=== PATIENT | female | born 1970 | race Caucasian/White ===

== ENCOUNTER → 2019-11-26 11:15 | Outpatient (BNVA) | payer MEDICARE, MEDICAID, SELFPAY | PROVIDERS: Visit Provider Family Medicine | DX: E11.65 Type 2 diabetes mellitus with hyperglycemia (principal); Z79.4 Long term (current) use of insulin; I10 Essential (primary) hypertension; E11.319 Type 2 diabetes mellitus with unspecified diabetic retinopathy without macular edema; E83.42 Hypomagnesemia; F32.9 Major depressive disorder, single episode, unspecified; K21.9 Gastro-esophageal reflux disease without esophagitis; E78.5 Hyperlipidemia, unspecified; B37.9 Candidiasis, unspecified; L02.91 Cutaneous abscess, unspecified; L97.121 Non-pressure chronic ulcer of left thigh limited to breakdown of skin | CPT/HCPCS: 80053; 80061; 83036; 83735 ==

== ENCOUNTER → 2019-12-26 15:33 | Outpatient (BNVA) | payer MEDICARE, MEDICAID, SELFPAY | PROVIDERS: Visit Provider Nurse Practitioner Family | DX: R82.90 Unspecified abnormal findings in urine (principal); Z91.89 Other specified personal risk factors, not elsewhere classified; R30.0 Dysuria | CPT/HCPCS: 81000 ==

== ENCOUNTER → 2019-12-28 09:18 | Outpatient (BNVA) | payer MEDICARE, MEDICAID, SELFPAY | PROVIDERS: Referring Provider Family Medicine; Visit Provider Family Medicine | DX: Z91.89 Other specified personal risk factors, not elsewhere classified (principal) | CPT/HCPCS: 80074; 87491; 87591; 87661; 87806 ==

== ENCOUNTER → 2020-01-21 10:55 | Outpatient (BNVA) | payer MEDICARE, MEDICAID, SELFPAY | PROVIDERS: Visit Provider Emergency Medicine | DX: M25.531 Pain in right wrist (principal) | CPT/HCPCS: 73110 ==

== ENCOUNTER 2020-03-14 18:32 | Emergency (ER) | payer MEDICARE, MEDICAID, SELFPAY ==
[2020-03-14 18:37] VITALS: BP 169/79; PULSE 102; RESP 18; TEMP 36.9; O2SAT 94; BMI 33.0
--- NOTE | 2020-03-14 18:49 | CTR_ITS ---
PROCEDURE INFORMATION: Exam: CT Head Without Contrast Exam date and time: 03/14/2020 6:50 PM Age: 50 years old Clinical indication: Speech disturbance; Patient HX: Slurred speech, fatigue since 03/09; Additional info: CVA TECHNIQUE: Imaging protocol: Computed tomography of the head without contrast. Radiation optimization: All CT scans at this facility use at least one of these dose optimization techniques: automated exposure control; mA and/or kV adjustment per patient size (includes targeted exams where dose is matched to clinical indication); or iterative reconstruction. COMPARISON: No relevant prior studies available. FINDINGS: In lateral aspect right basal ganglia and extending into right external capsule there is hyperdense area compatible with acute hemorrhage measuring about 3.3 x 2.8 x 2.0 cm, with mild adjacent edema and local mass effect. There is moderate low density in the bilateral periventricular white matter which may represent chronic small vessel ischemic disease in the appropriate clinical setting. The possibility of superimposed acute infarctions cannot be excluded; consider MRI brain (including diffusion images) for further assessment if clinically warranted and if patient has no contraindication to MRI. There are prominent intracranial arterial calcifications. There is mild cerebral cortical volume loss. Ventricles do not appear significantly dilated. There is mildly prominent cisterna magna, a developmental variant. No depressed calvarial fracture is demonstrated. Visualized paranasal sinuses and mastoid air cells demonstrate no significant opacification. CT/CT head wo con* [id number] IMPRESSION: In lateral aspect right basal ganglia and extending into right external capsule there is hyperdense area compatible with acute hemorrhage measuring about 3.3 x 2.8 x 2.0 cm, with mild adjacent edema and local mass effect. Probable chronic ischemic changes as discussed above. THIS REPORT CONTAINS FINDINGS THAT MAY BE CRITICAL TO PATIENT CARE. The findings were verbally communicated via telephone conference with Tiara Mcknight at 7:41 PM CDT on 03/14/2020. The findings were acknowledged, understood and read back by Tiara Mcknight. Total DLP (mGy-cm): 737.97 Radiation Dose CTDIVOL = (mGy): DLP = 737.97 (mGy-cm)
--- NOTE | 2020-03-14 18:49 | XRR_ITS ---
PROCEDURE INFORMATION: Exam: XR Chest, 1 View Exam date and time: 03/14/2020 7:06 PM Age: 50 years old Clinical indication: Other: CVA TECHNIQUE: Imaging protocol: XR of the chest Views: 1 view. COMPARISON: No relevant prior studies available. FINDINGS: Lungs: Minimal interstitial scarring or atelectasis lower lungs. Pleural space: Unremarkable. No pleural effusion. No pneumothorax. Heart/Mediastinum: Unremarkable. No cardiomegaly. Bones/joints: Degenerative change of the spine. Calcific tendinosis right shoulder. XR/XR chest 1V portable [id number] IMPRESSION: Minor interstitial scarring or atelectasis lower lungs.
[2020-03-14 19:07] VITALS: RESP 18
[2020-03-14 19:12] LABS: Basophils % 0.4 %; Eosinophils # 0.1 10^3/uL (0.0-0.8); Eosinophils % 0.6 %; Hematocrit 43.3 % (37.0-47.0); Lymphocytes # 3.4 10^3/uL (0.8-4.8); Lymphocytes % 41.4 %; Mean Corpuscular HGB Conc 32.3 g/dL (30.0-36.0); Mean Corpuscular Hemoglobin 28.1 pg (28.0-34.0); Mean Corpuscular Volume 86.9 fL (81-99); Mean Platelet Volume 9.5 fL (7.4-10.4); Monocytes # 0.6 10^3/uL (0.2-0.9); Monocytes % 7.3 %; Neutrophils # 4.1 10^3/uL (1.8-7.7); Neutrophils % 49.8 %; Nucleated Red Blood Cells % 0 %; Platelet Count 383 10^3/cmm (130-400); Red Blood Count 4.98 10^6/uL (4.1-5.3); Red Cell Distribution Width 12.4 % (12.1-15.1); White Blood Count 8.3 10^3/uL (4.0-10.0)
[2020-03-14] MEDS: sodium chloride 0.9% 1,000 ML 999 ML IV (19:20)
--- NOTE | 2020-03-14 19:20 | ECG_ITS ---
[facility] Test Date: 2020-03-14 Pat Name: Ana Steward Department: Room: Gender: Female Head Baker: : 1970 Requested By: Tiara Hernandez Order Number: [id number] Sarah MD: Tali Lee M.D. Measurements Intervals [place] Rate: 106 P: 63 TN: 129 QRS: 38 QRSD: 97 T: 20 QT: 332 QTc: 441 Interpretive Statements SINUS TACHYCARDIA NONSPECIFIC T-WAVE ABNORMALITY ABNORMAL RHYTHM ECG No previous ECG available for comparison Electronically Signed On 03-14-2020 21:44:16 CDT by Tali Lee M.D. [id number]
--- NOTE | 2020-03-14 19:20 | ED_ITS ---
HPI - Weakness General: Chief complaint: Weakness Stated complaint: post stroke like symptoms Time Seen by Provider: 03/14/20 18:50 Source: patient Mode of arrival: ambulatory Limitations: no limitations History of Present Illness: HPI Narrative: 50-year-old female states she has been having some stuttering along with generalized weakness and confusion over the last 3 to 4 days. She states she had a mild headache as well. Patient is slightly hypertensive here. She denies any worsening improving factors. Patient is able answer all my questions appropriately here. She denies any chest pain. Associated symptoms: Denies chest pain, chills, dysuria, easy bruising, fever(s), nausea or vomiting Review of Systems Const: Denies: fever(s), chills, body aches or change in appetite Eyes: Denies: blurry vision or eye discomfort ENMT: Denies: throat pain or dental pain Card: Denies: chest pain Resp: Denies: dyspnea GI: Denies: abdominal pain, nausea, vomiting or diarrhea : Denies: dysuria Musc: Denies: neck pain or back pain Skin/Breast: Denies: rash Neuro: Reports: weakness in extremities Psych: Denies: depression Bin/Lymph: Denies: easy bruising All/Imm: Denies: urticaria PFSH ED PFSH: Medical History De Quervain's disease (radial styloid tenosynovitis) Depression Diabetes Diabetic retinopathy GERD (gastroesophageal reflux disease) Hx of hepatitis C Completed tx 2006 Hyperlipidemia Hypertension Right wrist pain Tendonitis Yeast dermatitis Surgical History H/O: Family History Sister Cancer Mother Chronic kidney disease (CKD) Diabetes Hypertension Father Hypertension Family/Other Stroke aunt Social History Smoking and tobacco status: current some day smoker cigarettes [ Other cigarette details: 1 pack a month ] Alcohol intake: current Alcohol intake frequency: few times a month Physical Exam Const: COMMON NORMALS: no acute distress, patient oriented x3 and healthy appearing HENMT: COMMON NORMALS: normocephalic and atraumatic HEAD & SCALP: normocephalic and atraumatic Eye: COMMON NORMALS: Equal, round and reactive pupils present and EOMs intact bilaterally PUPIL: Yes Equal, round and reactive pupils present Neck/C-Spine: COMMON NORMALS: full ROM and supple Chest: COMMONS NORMALS: normal inspection of the chest and normal palpation of entire chest wall Resp: COMMON NORMALS: normal respiratory effort, No retractions, No use of accessory muscles and clear to auscultation bilaterally AUSCULTATION: clear to auscultation bilaterally Cardio: COMMON NORMALS: regular rate, regular rhythm and No murmurs present (Cardio) RATE: regular rate RHYTHM: regular rhythm GI: COMMON NORMALS: Normal to inspection, nondistended, normoactive bowel sounds present, Soft to palpation, non-tender and no masses PALPATION: Yes Soft to palpation Extremity: COMMON NORMALS: normal to inspection and full ROM Neuro: COMMON NORMALS: patient oriented x3, moves all extremities and no focal motor deficits Psych: COMMON NORMALS: mental status grossly normal, Normal thought process present and cooperative THOUGHT PROCESS: Normal thought process present Skin: COMMON NORMALS: no rashes or lesions noted and no wounds GENERAL SKIN EXAM: no rashes or lesions noted Course Vital Signs: Vital signs: Vital Signs Temperature 98.5 F 03/14/20 18:37 Pulse Rate 102 H 03/14/20 18:37 Respiratory Rate 18 03/14/20 19:07 Blood Pressure 169/79 03/14/20 18:37 Pulse Oximetry 94 03/14/20 18:37 MDM - Weakness MDM Narrative: Medical decision making narrative: Patient presents here with intra-cranial hemorrhage likely hypertensive. Patient started on a Cardene drip here. Patient is awake and alert and has a GCS of 15 and does not need to be intubated. I spoke to ER physician at [facility] and will transfer there for higher level of care as we do not have neurosurgery. Lab Data: Labs: Lab Results 03/14/20 03/14/20 03/14/20 Range/Units 19:01 19:01 19:10 WBC 8.3 (4.0-10.0) 10^3/ uL RBC 4.98 (4.1-5.3) 10^6/u L Hgb 14.0 (11.5-15.3) g/dL Hct 43.3 (37.0-47.0) % MCV 86.9 (81-99) fL MCH 28.1 (28.0-34.0) pg MCHC 32.3 (30.0-36.0) g/dL RDW 12.4 (12.1-15.1) % Plt Count 383 (130-400) 10^3/c mm MPV 9.5 (7.4-10.4) fL Neut % (Auto) 49.8 % Lymph % (Auto) 41.4 % [place] % (Auto) 7.3 % Eos % (Auto) 0.6 % Baso % (Auto) 0.4 % Neut # (Auto) 4.1 (1.8-7.7) 10^3/u L Lymph # (Auto) 3.4 (0.8-4.8) 10^3/u L [place] # (Auto) 0.6 (0.2-0.9) 10^3/u L Eos # (Auto) 0.1 (0.0-0.8) 10^3/u L Baso # (Auto) 0.0 (0.0-0.1) 10^3/u L Nucleated RBC % (a uto) 0 % Nucleated RBCs # 0.0 /100WBC PT 11.00 (10.5-13.3) SECO NDS INR 0.78 L (0.8-1.2) Urine Color Straw (Yellow) Urine Appearance Hazy A (CLEAR) Urine pH 5 (5-7) Ur Specific Gravit y 1.015 (1.005-1.030) Urine Protein 3+ H (Negative) Urine Glucose (UA) 4+ H (Normal) Urine Ketones Negative (Negative) Urine Blood 2+ H (Negative) Urine Nitrate Negative (Negative) Urine Bilirubin Neg (NEGATIVE) Urine Urobilinogen Norm (Negative) mg/dL Ur Leukocyte Alexia ase Negative (Negative) Urine RBC 10-15 H (0-2) /hpf Urine WBC None (0-5) /hpf Ur Squamous Epith Cells 0-4 H (0-5) Amorphous Sediment Not Reportable Urine Bacteria Trace (NONE) Hyaline Casts 5-10 H Fine Granular Cast s 0-4 H /lpf Imaging Data^: CT Head: Radiologist's impression: [address] [place] [address] CT Scan Report Signed Patient: Ana Steward Unit #: [id number] : 1970 Age/Sex: 50 / F ADM Date: 03/14/20 Loc: ER Room/Bed: Attending Dr: Ordering Provider/Ordering MD: Tiara Hernandez MD Date of Service: 03/14/20 Procedure(s): CT head wo con* [id number] Accession Number(s): [id number] Report Number: [id number] PROCEDURE INFORMATION: Exam: CT Head Without Contrast Exam date and time: 03/14/2020 6:50 PM Age: 50 years old Clinical indication: Speech disturbance; Patient HX: Slurred speech, fatigue since 03/09; Additional info: CVA TECHNIQUE: Imaging protocol: Computed tomography of the head without contrast. Radiation optimization: All CT scans at this facility use at least one of these dose optimization techniques: automated exposure control; mA and/or kV adjustment per patient size (includes targeted exams where dose is matched to clinical indication); or iterative reconstruction. COMPARISON: No relevant prior studies available. FINDINGS: In lateral aspect right basal ganglia and extending into right external capsule there is hyperdense area compatible with acute hemorrhage measuring about 3.3 x 2.8 x 2.0 cm, with mild adjacent edema and local mass effect. There is moderate low density in the bilateral periventricular white matter which may represent chronic small vessel ischemic disease in the appropriate clinical setting. The possibility of superimposed acute infarctions cannot be excluded; consider MRI brain (including diffusion images) for further assessment if clinically warranted and if patient has no contraindication to MRI. There are prominent intracranial arterial calcifications. There is mild cerebral cortical volume loss. Ventricles do not appear significantly dilated. There is mildly prominent cisterna magna, a developmental variant. No depressed calvarial fracture is demonstrated. Visualized paranasal sinuses and mastoid air cells demonstrate no significant opacification. CT/CT head wo con* [id number] IMPRESSION: In lateral aspect right basal ganglia and extending into right external capsule there is hyperdense area compatible with acute hemorrhage measuring about 3.3 x 2.8 x 2.0 cm, with mild adjacent edema and local mass effect. Probable chronic ischemic changes as discussed above. THIS REPORT CONTAINS FINDINGS THAT MAY BE CRITICAL TO PATIENT CARE. The findings were verbally communicated via telephone conference with Tiara Mcknight at 7:41 PM CDT on 03/14/2020. The findings were acknowledged, understood and read back by Tiara Mcknight. EKG Data^: EKG 1: Attestation: I personally reviewed and interpreted this EKG as follows: EKG interpretation date: 03/14/20 EKG interpretation time: 19:37 Interpretation: sinus tach hr [address] or t wave abnormalities qrs 97 qtc 394 Critical Care Time Critical Care Time: Critical Care Time: Yes Total Critical Care Time: 35 Attestation: This case had a high probability of a clinically significant, sudden, or life threatening deterioration of this patient's condition which required my full and direct attention, intervention and personal management. Discharge Plan Discharge Patient Disposition: Xfer Other Clinical Impression: Intracranial hemorrhage Condition: Stable Referrals: Rosi Angel MD [Primary Care Provider] - Coding Level of Care Code ED Marketing Strategy Analyst for Chg Fwd Exam Comprehensive
[2020-03-14 19:43] LABS: INR 0.78 (0.8-1.2)
[2020-03-14 19:48] LABS: Add Urine Microscopic? YES; Bilirubin Urine Neg (NEGATIVE); Blood Urine 2+ (Negative); Glucose Urine UA 4+ (Normal); Ketones Urine Negative (Negative); Leukocyte Esterase Urine Negative (Negative); Nitrate Urine Negative (Negative); Protein Urine 3+ (Negative); Specific Gravity, Urine 1.015 (1.005-1.030); Urine Appearance Hazy (CLEAR); Urine Color Straw (Yellow); Urobilinogen Urine Norm (Negative); pH Urine 5 (5-7)
[2020-03-14 19:51] LABS: Bacteria Urine TRACE; Squamous Epithelial Cell Urine 0-4 (0-5)
[2020-03-14 19:52] LABS: Add Urine Culture? Yes; Fine Granular Casts Urine 0-4 /lpf
[2020-03-14 20:05] LABS: Alanine Aminotransferase 63 U/L (0-33); Albumin Level 2.7 g/dL (3.5-5.2); Alkaline Phosphatase 126 IU/L (35-105); Anion Gap 18.8 (5-19); Aspartate Amino Transferase 41 U/L (0-32); Blood Urea Nitrogen 31 mg/dL (6-20); Calcium 8.6 mg/dL (8.5-10.5); Carbon Dioxide 18 mmol/L (22-29); Chloride 98 mmol/L (98-107); Globulin 3.4 g/dL (1.3-4.6); Glomerular Filtration Rate 76.2 mL/min (90-130); Glucose 410 mg/dL (65-115); Osmolality Calculated 286 mOsm/kg (285-295); Potassium 3.8 mmol/L (3.5-5.1); Sodium 131 mmol/L (136-145); Thyroid Stimulating Hormone 2.77 uIU/mL (0.27-4.20); Total Bilirubin 0.2 mg/dL (0.15-1.2); Total Protein 6.1 g/dL (6.6-8.7)
[2020-03-14] MEDS: nicardipine 20 MG/200 ML PREMIX 50 MG IV (20:15)
[2020-03-14 20:44] VITALS: BP 144/79; PULSE 119; RESP 18; TEMP 36.9; O2SAT 100
--- NOTE | 2020-03-14 20:49 | PC.NURSE ---
Patient transferred to [facility] by [facility] with Cardene infusing at 15mg/hr.
== END 2020-03-14 20:45 | disposition other institution (70) ==
PROVIDERS: Emergency Provider Emergency Medicine; PCP Family Medicine
DX: I62.9 Nontraumatic intracranial hemorrhage, unspecified (principal); E11.9 Type 2 diabetes mellitus without complications; Z86.19 Personal history of other infectious and parasitic diseases; E78.5 Hyperlipidemia, unspecified; I10 Essential (primary) hypertension; F17.210 Nicotine dependence, cigarettes, uncomplicated
CPT/HCPCS: 12345; 36415; 70450; 71045; 80053; 81001; 81003; 84443; 85025; 85610; 87086; 93005; 96360; 96361; 96365; 99283; 99284; J7030

== ENCOUNTER → 2020-04-04 16:00 | Outpatient (BNVA) | payer MEDICARE, MEDICAID, SELFPAY | PROVIDERS: PCP Family Medicine; Visit Provider Family Medicine | DX: E11.65 Type 2 diabetes mellitus with hyperglycemia (principal); I10 Essential (primary) hypertension; E78.2 Mixed hyperlipidemia; I63.9 Cerebral infarction, unspecified; Z79.4 Long term (current) use of insulin | CPT/HCPCS: 80053; 80061; 83036 ==

== ENCOUNTER → 2020-04-29 10:51 | Outpatient (BNVA) | payer MEDICARE, MEDICAID, SELFPAY | PROVIDERS: PCP Family Medicine; Visit Provider Internal Medicine | DX: M65.4 Radial styloid tenosynovitis [de Quervain] (principal) | CPT/HCPCS: 87635 ==

== ENCOUNTER 2020-05-03 11:46 | Day surgery (SDC) | payer MEDICARE, MEDICAID, SELFPAY ==
[2020-05-02 13:47] VITALS: BMI 32.4
[2020-05-03 12:11] VITALS: BP 156/84; PULSE 95; RESP 18; TEMP 36.4; O2SAT 97
[2020-05-03] MEDS: sodium chloride 0.9% 1,000 ML 30 ML IV (12:40)
[2020-05-03 12:47] LABS: Glucose Point of Care 288 mg/dL (70-110)
--- NOTE | 2020-05-03 13:02 | P.ANESASSM_ITS ---
Pre-Anesthetic Assessment Pre-Anesthetic Assessment: Height/Weight: Height 1.69 m Weight 92.533 kg Temp Pulse Resp BP Pulse Ox 97.5 F L 95 18 156/84 97 05/03/20 12:11 05/03/20 12:11 05/03/20 12:11 05/03/20 12:11 05/03/20 12:11 Preop Diagnosis: Right de Quervain's tenosynovitis Proposed Procedure: Operation Date: 05/03/20 13:45 Proposed Procedures p Dequervain Release 10558 M65.4(Right) - Zohra Rodriguez MD Familial anesthetic complications: none Was Beta Jeanine taken within 24 eulalia rs: N/A Last intake: Intake Last Liquid Date 05/02/20 Last Liquid Time 23:55 Last Solid Date 05/02/20 Last Solid Time 23:55 Social: Social History: No alcohol and No tobacco Exam: Pre-Anes Outpt Exam: alert, oriented x 3, clear to auscultation bilaterally and regular rate & rhythm Airway: Cervical ROM: WNL MP: 3 Dentition: Full CV/HEM: CV/HEM: HTN GI: GI: GERD Metabolic: Metabolic: DM, Hyperlipidemia and Morbid obesity Neuropsych: Neuropsych: CVA (some slurring of words as residual symptom) Anesthetic Plan: ASA status: 2 Anesthesia: MAC and Regional (specify below) (cheyanne block) Risk of > 500 ml blood loss (7ml/kg in children): No Meds/Allergies Current Medications: Current Medications Generic Name Dose Route Start Last Admin Trade Name Freq PRN Reason Stop Dose Admin Sodium Chloride 1,000 mls @ 30 ml s/hr 05/03/20 12:15 05/03/20 12:40 Sodium Chloride 0.9% IV 05/04/20 12:14 30 mls/hr .Q24H GEETA Administration PFSH Anesthesia PFSH: Medical History CVA (cerebral vascular accident) De Quervain's disease (radial styloid tenosynovitis) Depression Diabetes Diabetic retinopathy GERD (gastroesophageal reflux disease) Hx of hepatitis C Completed tx 2006 Hyperlipidemia Hypertension Right wrist pain Tendonitis Yeast dermatitis Surgical History H/O: Family History Sister Cancer Mother Chronic kidney disease (CKD) Diabetes Hypertension Father Hypertension Family/Other Stroke aunt Social History Smoking and tobacco status: current some day smoker cigarettes [ Other cigarette details: 1 pack a month ] Alcohol intake: current Alcohol intake frequency: few times a month Female Reproductive History: Date of last menstrual period: 04/09/20 Data Anesthesia Other Labs: Laboratory Results - last 48 hr 05/03/20 12:24 POC Glucose 288 Cardiac Studies: No Data to Display
[2020-05-03] MEDS: insulin regular-human 100 units/1 mL 10 UNIT IVP (13:13)
--- NOTE | 2020-05-03 14:51 | P.HPUD_ITS ---
Surgery/Procedure H&P Update DATE OF PROCEDURE: May 03, 2020 DATE H&P PERFORMED: 05/02/20 H&P UPDATE INFORMATION: I have reviewed H&P completed within last 30 days, No changes to prior documentation and H&P is in [facility] on date indicated PREOP DIAGNOSIS: Right de Quervain's tenosynovitis PLANNED PROCEDURE: Operation Date: 05/03/20 13:45 Proposed Procedures p Dequervain Release [id number] M65.4(Right) - Zohra Rodriguez MD Related Problem List Diagnoses (1) De Quervain's disease (radial styloid tenosynovitis):
[2020-05-03 16:19] VITALS: BP 129/84; PULSE 96; RESP 18; TEMP 36.2; O2SAT 99
--- NOTE | 2020-05-03 16:20 | PM.OP ---
Operative Report Date of procedure: May 03, 2020 Pre-op Diagnosis: Right de Quervain's tenosynovitis Post-op diagnosis: same Post-op Findings: Significant compression throughout the de Quervain's canal Procedure Done: Right de Quervain's release Specimens removed/disposition: None Pathology: none sent Anesthesia: MAC (With Mitzy block) Estimated blood loss (mL): 5 Tourniquet time (min): 42 IV fluids (mL): 300 Urine output (mL): 0 Complications: None Findings: Significant compression across de Quervain's canal Condition: stable Disposition: same day Brief History: This 50-year-old woman presented with complaints of severe pain along de Quervain's canal. After discussion, she wished to proceed with operative intervention. Risks and complications were discussed with her, and the patient was consented for the above procedure. Procedure: The patient was brought to the operating theater. Anesthesia provided [place] block with MAC. The patient's right upper extremity was prepped and draped in usual fashion utilizing DuraPrep. It was draped free. The radial styloid was palpated and an incision was made horizontally approximately 1 cm proximal to the tip of the radial styloid. Dissection continued through the skin and dermis but following that soft tissue blunt dissection was accomplished to prevent injury to the superficial radial nerve branches in the area. We were able to retract these branches and the first dorsal compartment was visualized. The fibrous tissue over the first dorsal compartment was noted to be quite thickened and erythematous. This was released longitudinally using a combination of scalpel and scissors. We then confirmed that each of the tendons at been released. There was one abductor pollicis longus tendons and one extensor pollicis brevis tendon. All of these were released at least a centimeter distal to the radial styloid and proximally as well. There was no further compression across the tendons. The tendons were pulled up out of the tunnel for evaluation. Following this, the wound was irrigated. Attention was then directed to closure. Closure was accomplished with 4-0 Monocryl in a subcuticular running fashion. We did inject the wound with half percent Marcaine plain for local anesthetic. This was followed by Exofin and a Tegaderm. We then placed a compression dressing with fluffed fluffs followed by soft roll, and an Abdon wrap. Patient was returned to Recovery Room in a satisfactory condition and will be discharged home to follow-up with me in the office. There were no specimens and no complications. Associated Problem List Diagnoses (1) De Quervain's disease (radial styloid tenosynovitis):
[2020-05-03 16:32] VITALS: BP 141/99; PULSE 88; RESP 18; TEMP 36.2; O2SAT 98
--- NOTE | 2020-05-03 17:24 | ANE.PACU2 ---
Inpatient post-anesthesia follow up: Airway intact: Yes Vital signs: Temperature 97.2 F Pulse Rate 88 Respiratory Rate 18 Blood Pressure 141/99 Pulse Oximetry 98 Oxygen Delivery Me thod Room Air Oxygen Flow Rate Fraction of Inspir ed Oxygen Hydration adequate: Yes Nausea and vomiting: No Pain level: 1 Mental status: Baseline
== END 2020-05-03 17:01 | disposition home or self-care (01) ==
PROVIDERS: PCP Family Medicine; Visit Provider Specialist
PROC: (CPT 25000; principal; 2020-05-03 13:45)
DX: M65.4 Radial styloid tenosynovitis [de Quervain] (principal); I10 Essential (primary) hypertension; K21.9 Gastro-esophageal reflux disease without esophagitis; E78.5 Hyperlipidemia, unspecified; E66.01 Morbid (severe) obesity due to excess calories; I69.328 Other speech and language deficits following cerebral infarction; F32.9 Major depressive disorder, single episode, unspecified; E11.319 Type 2 diabetes mellitus with unspecified diabetic retinopathy without macular edema; F17.210 Nicotine dependence, cigarettes, uncomplicated
CPT/HCPCS: 25000; 12345; 36416; 81025; 82962; 96365; 96374; J0131; J0690; J1815; J2250; J2704; J3010; J3490; J7030

== ENCOUNTER → 2020-08-16 12:12 | Outpatient (BNVA) | payer MEDICARE, MEDICAID, SELFPAY | PROVIDERS: PCP Family Medicine; Visit Provider Family Medicine | DX: E11.65 Type 2 diabetes mellitus with hyperglycemia (principal); Z79.4 Long term (current) use of insulin; I10 Essential (primary) hypertension; E11.9 Type 2 diabetes mellitus without complications; E78.5 Hyperlipidemia, unspecified; K21.9 Gastro-esophageal reflux disease without esophagitis; E83.42 Hypomagnesemia; B37.2 Candidiasis of skin and nail; F33.0 Major depressive disorder, recurrent, mild; N76.4 Abscess of vulva; E78.2 Mixed hyperlipidemia; E87.1 Hypo-osmolality and hyponatremia; M65.4 Radial styloid tenosynovitis [de Quervain] | CPT/HCPCS: 80053; 80061; 83036; 83735 ==

== ENCOUNTER → 2021-02-02 10:57 | Outpatient (BNVA) | payer MEDICARE, MEDICAID, SELFPAY | PROVIDERS: PCP Family Medicine; Visit Provider Family Medicine | DX: I10 Essential (primary) hypertension (principal); Z68.37 Body mass index [BMI] 37.0-37.9, adult; F33.0 Major depressive disorder, recurrent, mild; E78.5 Hyperlipidemia, unspecified; K21.9 Gastro-esophageal reflux disease without esophagitis; B37.2 Candidiasis of skin and nail; E83.42 Hypomagnesemia; Z79.4 Long term (current) use of insulin; E11.9 Type 2 diabetes mellitus without complications; E11.65 Type 2 diabetes mellitus with hyperglycemia | CPT/HCPCS: 80053; 83036 ==

== ENCOUNTER → 2021-08-24 10:00 | Outpatient (BNVA) | payer MEDICARE, MEDICAID, SELFPAY | PROVIDERS: PCP Family Medicine; Visit Provider Family Medicine | DX: I10 Essential (primary) hypertension (principal); E83.42 Hypomagnesemia; E78.2 Mixed hyperlipidemia; E11.65 Type 2 diabetes mellitus with hyperglycemia; Z79.4 Long term (current) use of insulin; N92.1 Excessive and frequent menstruation with irregular cycle | CPT/HCPCS: 80053; 80061; 83036; 83735; 85025 ==

== ENCOUNTER 2022-03-15 17:00 | Emergency (ER) | payer MEDICARE, MEDICAID, SELFPAY ==
[2022-03-15 17:06] VITALS: BP 200/100; PULSE 114; RESP 14; TEMP 36.6; O2SAT 96; BMI 32.8
--- NOTE | 2022-03-15 17:26 | CTR_ITS ---
PROCEDURE INFORMATION: Exam: CTA Head With Contrast, Arteriography Exam date and time: 03/15/2022 7:32 PM Age: 52 years old Clinical indication: Stroke-like symptoms; Lt upper extremity and lt lower extremity weakness; Additional info: Patient had a fall today and hypertensive on monitor. States has lost sensation to left side of body. History of prior CVA. TECHNIQUE: Imaging protocol: Computed tomographic angiography of the head with contrast. Exam focused on the arteries. 3D rendering (Not supervised by radiologist): MIP and/or 3D reconstructed images were created by the technologist. Radiation optimization: All CT scans at this facility use at least one of these dose optimization techniques: automated exposure control; mA and/or kV adjustment per patient size (includes targeted exams where dose is matched to clinical indication); or iterative reconstruction. Contrast material: OMNI 350; Contrast volume: 90 ml; Contrast route: INTRAVENOUS (IV); COMPARISON: CT head wo con* [id number] 03/14/2020 7:14 PM RADIATION DOSE METRICS: Total DLP (mGy-cm): 535.17 FINDINGS: Limitations: Study is severely limited by patient motion. ANTERIOR CIRCULATION: Right internal carotid artery: Limited visualization. Intracranial segment is grossly patent with no significant stenosis. No aneurysm. Right middle cerebral artery: Limited visualization. Intracranial segment is grossly patent with no significant stenosis. No aneurysm. Right anterior cerebral artery: Limited visualization. Intracranial segment is grossly patent with no significant stenosis. No aneurysm. Left internal carotid artery: Limited visualization. Intracranial segment is grossly patent with no significant stenosis. No aneurysm. Left middle cerebral artery: Limited visualization. Intracranial segment is grossly patent with no significant stenosis. No aneurysm. Left anterior cerebral artery: Limited visualization. Intracranial segment is grossly patent with no significant stenosis. No aneurysm. POSTERIOR CIRCULATION: Right vertebral artery: Unremarkable. No occlusion or significant stenosis. No aneurysm. Left vertebral artery: Unremarkable. No occlusion or significant stenosis. No aneurysm. Basilar artery: Unremarkable. No occlusion or significant stenosis. No aneurysm. Right posterior cerebral artery: Limited visualization. Intracranial segment is grossly patent with no significant stenosis. No aneurysm. Left posterior cerebral artery: Limited visualization. Intracranial segment is grossly patent with no significant stenosis. No aneurysm. Brain: There is an acute parenchymal hemorrhage in the supraventricular portion of the right posterior parietal lobe and centrum semiovale measuring approximately 43 x 22 x 23 mm (approximate volume 10.8 cc). Cerebral ventricles: There is interventricular extension of the parenchymal hemorrhage with blood filling the trigone, occipital horn and temporal horn of the right lateral ventricle. Bones/joints: Unremarkable. No acute fracture. Soft tissues: Unremarkable. COMMENTS: THIS REPORT CONTAINS FINDINGS THAT MAY BE CRITICAL TO PATIENT CARE. The findings were verbally communicated via telephone conference with Darian Bernstein at 8:01 PM CDT on 03/15/2022. The findings were acknowledged and understood. PROCEDURE INFORMATION: Exam: CTA Neck With Contrast Exam date and time: 03/15/2022 7:32 PM Age: 52 years old Clinical indication: Stroke-like symptoms; Lt upper extremity and lt lower extremity weakness; Additional info: Patient had a fall today and hypertensive on monitor. States has lost sensation to left side of body. History of prior CVA. TECHNIQUE: Imaging protocol: Computed tomographic angiography of the neck with contrast. 3D rendering (Not supervised by radiologist): MIP and/or 3D reconstructed images were created by the technologist. Radiation optimization: All CT scans at this facility use at least one of these dose optimization techniques: automated exposure control; mA and/or kV adjustment per patient size (includes targeted exams where dose is matched to clinical indication); or iterative reconstruction. Contrast material: OMNI 350; Contrast volume: 90 ml; Contrast route: INTRAVENOUS (IV); COMPARISON: CT head wo con* [id number] 03/14/2020 7:14 PM RADIATION DOSE METRICS: Total DLP (mGy-cm): 535.17 FINDINGS: Limitations: Study is significantly limited by patient motion. Right common carotid artery: No stenosis. No dissection or occlusion. Right internal carotid artery: No stenosis of the extracranial segment. No dissection or occlusion. Right external carotid artery: No occlusion or stenosis of the origin. Left common carotid artery: There is some focal atherosclerotic calcified plaque in the left carotid bulb but no significant stenosis as measured according to the NASCET criteria. Left internal carotid artery: No stenosis of the extracranial segment. No dissection or occlusion. Left external carotid artery: No occlusion or stenosis of the origin. Right vertebral artery: No stenosis. No dissection or occlusion. Left vertebral artery: No stenosis. No dissection or occlusion. Soft tissues: Normal. No significant soft tissue swelling. Bones/joints: No acute fracture. CT/CT angio headne* [id number] IMPRESSION: 1. No large vessel occlusion is demonstrated on this study, however evaluation of the blood vessels is limited by patient motion. 2. Acute parenchymal and intraventricular hemorrhage. IMPRESSION: There is no evidence of significant stenosis or occlusion in the carotid or vertebral arteries in the neck. REFERENCES: NASCET CRITERIA. The degree of internal carotid artery stenosis is based on NASCET criteria. Normal is no stenosis. Mild is less than 50% stenosis. Moderate is 50-69% stenosis. Severe is 70% to 99% stenosis. Total occlusion is no detectable patent lumen.
--- NOTE | 2022-03-15 17:27 | ECG_ITS ---
[facility] Test Date: 2022-03-15 Pat Name: Ana Steward Department: Room: Gender: Female General Practitioner: : 1970 Requested By: Darian Bernstein Order Number: [id number] Sarah MD: Tali Lee M.D. Measurements Intervals [place] Rate: 118 P: 74 SC: 116 QRS: 90 QRSD: 95 T: 24 QT: 318 QTc: 447 Interpretive Statements SINUS TACHYCARDIA WITH SHORT SC INTERVAL LOW QRS VOLTAGE IN PRECORDIAL LEADS [QRS DEFLECTION < 1.0 mV IN CHEST LEADS] NONSPECIFIC T-WAVE ABNORMALITY ABNORMAL RHYTHM ECG Compared to ECG 03/14/2020 19:37:29 Short SC interval now present Low QRS voltage now present T-wave abnormality still present Electronically Signed On 03-15-2022 19:26:22 CDT by Tali Lee M.D. [id number]
--- NOTE | 2022-03-15 17:28 | W.ED.GENADLT ---
HPI - General Adult General: Chief complaint: General Medical Stated complaint: FALL/ HTN Time Seen by Provider: 03/15/22 17:19 History of Present Illness: 52-year-old presents due to concern for high blood pressure. Also states that her left-sided became paralyzed around noon today. She denies any headache. Denies any other focal weakness numbness or tingling. Denies any vision hearing change or vertigo. States she fell at home due to the paralysis. Initially denies pain to me however after several minutes in the room the reported headache. Review of Systems Narrative: - CONSTITUTIONAL: Denies weight loss, fever and chills. - HEENT: Denies changes in vision and hearing. - RESPIRATORY: Denies SOB and cough. - CV: Denies palpitations and CP. - GI: Denies abdominal pain, nausea, vomiting and diarrhea. - : Denies dysuria and urinary frequency. - MSK: Denies myalgia and joint pain. - SKIN: Denies rash and pruritus. - NEUROLOGICAL: As above - PSYCHIATRIC: Denies suicidal ideation PFSH ED PFSH: Medical History (Updated 08/24/21 @ 15:09 by Rosi Angel MD) CVA (cerebral vascular accident) De Quervain's disease (radial styloid tenosynovitis) Depression Diabetes Diabetic retinopathy GERD (gastroesophageal reflux disease) Hx of hepatitis C Completed tx 2006 Hyperlipidemia Hypertension Did not tolerate hydrochlorothiazide or KOKO inhibitor due to dizziness Right wrist pain Tendonitis Yeast dermatitis Surgical History H/O: Family History Sister Cancer Mother Chronic kidney disease (CKD) Diabetes Hypertension Father Hypertension Family/Other Stroke aunt Social History Smoking and tobacco status: former smoker Alcohol intake: current Alcohol intake frequency: few times a month Female Reproductive History: Date of last menstrual period: 04/09/20 Spontaneous abortions: No Physical Exam Narrative: EXAM NARRATIVE: - GENERAL: Alert and oriented x 3. No acute distress. Well-nourished. - EYES: EOMI. Anicteric. - HENT: Atraumatic, no C-spine tenderness. Moist mucous membranes. No scleral icterus. No cervical lymphadenopathy. - LUNGS: Clear to auscultation bilaterally. No accessory muscle use. Equal lung sounds bilaterally. No respiratory distress. - CARDIOVASCULAR: Regular rate and rhythm. No murmur. No JVD. - ABDOMEN: Soft, non-tender and non-distended. Negative CVA tenderness bilaterally, no rebound or guarding, negative Hobson sign. No palpable masses. - EXTREMITIES: No edema. Non-tender. - SKIN: No rashes or lesions. Warm. - NEUROLOGIC: No meningismus. Cranial nerves II through XII intact. Left upper and lower extremity weakness. Bilateral lower extremity weakness greater on the left side. There is also weakness of the left upper extremity but no weakness on the right. No facial droop - PSYCHIATRIC: Cooperative. Appropriate mood and affect. Course Vital Signs: Vital signs: Vital Signs Temperature 98 F 03/15/22 17:06 Pulse Rate 114 H 03/15/22 17:06 Respiratory Rate 20 H 03/15/22 18:49 Blood Pressure 200/100 03/15/22 17:06 Pulse Oximetry 96 03/15/22 17:06 MDM - General Adult Medical Decision Making 52-year-old presents due to left-sided upper and lower extremity weakness as well as some more minor right lower extremity weakness. She denies any blood thinner use. GCS is 15. CT scan concerning for intracranial hemorrhage. She is maintaining her airway and does not appear to be altered. Not believe intubation is required at this time. There is no sign of intracranial pressure. Prophylactic Keppra provided. Discussed with ER physician at [facility] where appropriate subspecialty neurosurgery backup is available and they will accept transfer. Lab Data : 03/15/22 18:50 03/15/22 18:50 Laboratory Results WBC 9.2 10^3/uL (4.0-10.0) 03/15/22 18:50 RBC 4.79 10^6/uL (4.1-5.3) 03/15/22 18:50 Hgb 13.7 g/dL (11.5-15.3) 03/15/22 18:50 Hct 41.0 % (37.0-47.0) 03/15/22 18:50 MCV 85.6 fl (81-99) 03/15/22 18:50 MCH 28.6 pg (28.0-34.0) 03/15/22 18:50 MCHC 33.4 g/dL (30.0-36.0) 03/15/22 18:50 RDW 13.4 % (12.1-15.1) 03/15/22 18:50 Plt Count 359 10^3/cmm (130-400) 03/15/22 18:50 MPV 9.9 fL (7.4-10.4) 03/15/22 18:50 Neut % (Auto) 72.3 % 03/15/22 18:50 Lymph % (Auto) 20.8 % 03/15/22 18:50 [place] % (Auto) 5.3 % 03/15/22 18:50 Eos % (Auto) 0.4 % 03/15/22 18:50 Baso % (Auto) 0.5 % 03/15/22 18:50 Neut # (Auto) 6.67 10^3/uL (1.8-7.7) 03/15/22 18:50 Lymph # (Auto) 1.9 10^3/uL (0.8-4.8) 03/15/22 18:50 [place] # (Auto) 0.5 10^3/uL (0.2-0.9) 03/15/22 18:50 Eos # (Auto) 0.0 10^3/uL (0.0-0.8) 03/15/22 18:50 Baso # (Auto) 0.1 10^3/uL (0.0-0.1) 03/15/22 18:50 Nucleated RBC % (auto) 0 % 03/15/22 18:50 Nucleated RBCs # 0.0 /100WBC 03/15/22 18:50 Sodium 136 mmol/L (136-145) 03/15/22 18:50 Potassium 3.9 mmol/L (3.5-5.1) 03/15/22 18:50 Chloride 101 mmol/L (98-107) 03/15/22 18:50 Carbon Dioxide 20 mmol/L (22-29) L 03/15/22 18:50 Anion Gap 18.9 (5-19) 03/15/22 18:50 BUN 27 mg/dL (6-20) H 03/15/22 18:50 Creatinine 1.1 mg/dL (0.5-0.9) H 03/15/22 18:50 GFR Calculation 52.4 mL/min (90-130) L 03/15/22 18:50 Glucose 435 mg/dL (65-115) H 03/15/22 18:50 Calculated Osmolality 306 mOsm/kg (285-295) H 03/15/22 18:50 Calcium 8.6 mg/dL (8.5-10.5) 03/15/22 18:50 Total Bilirubin 0.2 mg/dL (0.15-1.2) 03/15/22 18:50 AST 39 U/L (0-32) H 03/15/22 18:50 ALT 37 U/L (0-33) H 03/15/22 18:50 Alkaline Phosphatase 108 IU/L (35-105) H 03/15/22 18:50 Troponin T Baseline 11 ng/L (0-10) H 03/15/22 18:50 Total Protein 5.9 g/dL (6.6-8.7) L 03/15/22 18:50 Albumin 2.3 g/dL (3.5-5.2) L 03/15/22 18:50 Globulin 3.6 g/dL (1.3-4.6) 03/15/22 18:50 EKG Data EKG 1: Other EKG comments: Sinus tachycardia, rate of 118, there is a short HI interval but no delta wave. No sign of acute ischemia or other acute abnormality. Critical Care Time Critical Care Time: Critical Care Time: Yes Total Critical Care Time: 30 Attestation: This case had a high probability of a clinically significant, sudden, or life threatening deterioration of this patient's condition which required my full and direct attention, intervention and personal management. Discharge Plan Discharge Condition: Stable Prescriptions: No Action nystatin 100,000 unit/gram powder 1 applic topical DAILY Qty: 60 5RF metoprolol succinate 25 mg tablet extended release 24 hr 25 mg PO DAILY 30 Days Qty: 30 2RF Levemir FlexTouch U-100 Insuln 100 unit/mL (3 mL) insulin pen 25 unit SUBCUT DAILY 30 Days Qty: 15 2RF sertraline 100 mg tablet 100 mg PO DAILY 90 Days Qty: 90 0RF omeprazole 40 mg capsule,delayed release(DR/EC) 40 mg PO DAILY 90 Days Qty: 90 1RF diphenhydramine HCl [Benadryl] 25 mg capsule 25 mg PO TID PRN0RF Fiasp FlexTouch U-100 Insulin 100 unit/mL (3 mL) insulin pen See Rx Instructions .ROUTE .COMPLEX Qty: 15 3RF Dose Instruction: 20 UNIT (0.2ML) SUB-Q 3 TIMES A DAY 30 DAYS WITH MEALS QUANITY SUFFICIENT Rx Instructions: 20 UNIT (0.2ML) SUB-Q 3 TIMES A DAY 30 DAYS WITH MEALS QUANITY SUFFICIENT magnesium oxide [MagOx] 400 mg (241.3 mg magnesium) tablet 400 mg PO BID 90 Days Qty: 180 0RF (DME) Blood Glucose Test Strip See Rx Instructions .ROUTE .MEDSUPPLY Qty: 100 11RF Rx Instructions: strips for new machine, 3 strips daily (DME) lancets Misc See Rx Instructions .ROUTE .MEDSUPPLY Qty: 100 11RF Rx Instructions: For use with glucose meter, brand/type per insurance (DME) blood-glucose meter [Blood Glucose Monitoring] Kit See Rx Instructions .ROUTE .MEDSUPPLY Qty: 1 0RF Rx Instructions: Brand/type per insurance coverage alcohol swabs Pads, Medicated 1 pad topical TID PRN (Reason: as needed to check blood sugar) 30 Days Qty: 100 11RF Discharge Orders: Transfer Out of Facility (Order); Ordered 03/15/22 Ordered By: Darian Bernstein Referrals: Rosi Angel MD [Primary Care Provider] - Coding Level of Care Code ED Tax Assistant for Nakul Torres
[2022-03-15 18:49] VITALS: RESP 20
[2022-03-15] MEDS: labetalol 5 mg/mL SDV 20mL 10 MG IVP (18:49)
[2022-03-15] MEDS: morphine 4 mg/mL SDV 1 mL IVP (18:49)
[2022-03-15 19:05] LABS: Basophils # 0.1 10^3/uL (0.0-0.1); Basophils % 0.5 %; Eosinophils % 0.4 %; Hemoglobin 13.7 g/dL (11.5-15.3); Lymphocytes # 1.9 10^3/uL (0.8-4.8); Lymphocytes % 20.8 %; Mean Corpuscular HGB Conc 33.4 g/dL (30.0-36.0); Mean Corpuscular Hemoglobin 28.6 pg (28.0-34.0); Mean Corpuscular Volume 85.6 fl (81-99); Mean Platelet Volume 9.9 fL (7.4-10.4); Monocytes # 0.5 10^3/uL (0.2-0.9); Monocytes % 5.3 %; Neutrophils # 6.67 10^3/uL (1.8-7.7); Neutrophils % 72.3 %; Nucleated Red Blood Cells % 0 %; Platelet Count 359 10^3/cmm (130-400); Red Blood Count 4.79 10^6/uL (4.1-5.3); Red Cell Distribution Width 13.4 % (12.1-15.1); White Blood Count 9.2 10^3/uL (4.0-10.0)
[2022-03-15 19:22] LABS: Alanine Aminotransferase 37 U/L (0-33); Albumin Level 2.3 g/dL (3.5-5.2); Alkaline Phosphatase 108 IU/L (35-105); Anion Gap 18.9 (5-19); Aspartate Amino Transferase 39 U/L (0-32); Blood Urea Nitrogen 27 mg/dL (6-20); Calcium 8.6 mg/dL (8.5-10.5); Carbon Dioxide 20 mmol/L (22-29); Chloride 101 mmol/L (98-107); Globulin 3.6 g/dL (1.3-4.6); Glomerular Filtration Rate 52.4 mL/min (90-130); Glucose 435 mg/dL (65-115); Osmolality Calculated 306 mOsm/kg (285-295); Potassium 3.9 mmol/L (3.5-5.1); Sodium 136 mmol/L (136-145); Total Bilirubin 0.2 mg/dL (0.15-1.2); Total Protein 5.9 g/dL (6.6-8.7); Troponin(5th) Baseline 11 ng/L (0-10)
[2022-03-15] MEDS: iohexol 350 mg/mL 100 mL Btl IV (19:37)
[2022-03-15] MEDS: nicardipine 20 MG/200 ML PREMIX 50 MG IV (20:54)
[2022-03-15] MEDS: fentaNYL 50 mcg/mL INJ 2mL IVP (21:20)
[2022-03-15 21:23] LABS: Partial Thromboplastin Time 23.8 SECONDS (23.9-36.7)
== END 2022-03-15 21:34 ==
PROVIDERS: Emergency Provider Emergency Medicine; PCP Family Medicine
DX: I61.5 Nontraumatic intracerebral hemorrhage, intraventricular (principal); I10 Essential (primary) hypertension; E11.9 Type 2 diabetes mellitus without complications; K21.9 Gastro-esophageal reflux disease without esophagitis; E78.5 Hyperlipidemia, unspecified; Z86.73 Personal history of transient ischemic attack (TIA), and cerebral infarction without residual deficits
CPT/HCPCS: 70496; 70498; 80053; 84484; 85025; 85610; 85730; 93005; 96365; 96367; 96375; 99285; J1953; J2270; J3010; J3490; Q9967

== ENCOUNTER 2022-07-28 01:33 | Emergency (ER) | payer MEDICARE, MEDICAID, SELFPAY ==
[2022-07-28 01:36] VITALS: PULSE 97; RESP 20; O2SAT 99; BMI 34.4
--- NOTE | 2022-07-28 03:13 | XRR_ITS ---
PROCEDURE INFORMATION: Exam: XR Left Humerus Exam date and time: 07/28/2022 4:23 AM Age: 52 years old Clinical indication: Injury or trauma; Fall; Blunt trauma (contusions or hematomas); Arm, upper; Patient HX: Left side paralysis. PT fell out of wheelchair; Additional info: L arm pain p fall TECHNIQUE: Imaging protocol: Radiologic exam of the Left humerus. Views: 2 or more views. COMPARISON: CT cervical spin wo con* [id number] 07/28/2022 3:49 AM FINDINGS: Bones/joints: Normal. Soft tissues: Normal. XR/[place] [id number] IMPRESSION: No acute findings.
--- NOTE | 2022-07-28 03:13 | CTR_ITS ---
PROCEDURE INFORMATION: Exam: CT Head Without Contrast Exam date and time: 07/28/2022 3:40 AM Age: 52 years old Clinical indication: Injury or trauma; Fall; Blunt trauma (contusions or hematomas); Consciousness not specified; Patient HX: Left side paralysis. PT fell out of wheelchair; Additional info: Fall head inj TECHNIQUE: Imaging protocol: Computed tomography of the head without contrast. Radiation optimization: All CT scans at this facility use at least one of these dose optimization techniques: automated exposure control; mA and/or kV adjustment per patient size (includes targeted exams where dose is matched to clinical indication); or iterative reconstruction. COMPARISON: CT angio headneck* [id number] 03/15/2022 7:32 PM RADIATION DOSE METRICS: Total DLP (mGy-cm): 1029.14 FINDINGS: Brain: There is no evidence of acute intracranial hemorrhage. There are moderate confluent periventricular hypodensities consistent with chronic microischemic changes of white matter. No mass effect or midline shift. There are hypodensities in the right gangliocapsular region extending to the centrum semiovale that correspond to areas of prior hemorrhage. Cerebral ventricles: There is moderate volume loss and commensurate ventricular dilatation, consistent with the patient's age. Paranasal sinuses: There are no air-fluid levels. There is mild nodular mucosal thickening of the right maxillary sinus. Mastoid air cells: The visualized mastoid air cells are well aerated. Bones/joints: No acute fracture. Soft tissues: Unremarkable. Vasculature: There is atheromatous calcification of the intracranial internal carotid and vertebral arteries. CT/CT head wo con* [id number] IMPRESSION: 1. No acute intracranial findings. 2. Hypodensities in the right gangliocapsular region and centrum semiovale that correspond to chronic evolving intracranial hemorrhages. These are areas of encephalomalacia/gliosis. 3. Moderate volume loss out of proportion to the patient's age. 4. The ventricles are significantly more dilated than on prior examinations and out of the proportion to the degree of sulcal prominence. Consider evaluation for normal pressure hydrocephalus, if not already accomplished.
--- NOTE | 2022-07-28 03:13 | XRR_ITS ---
PROCEDURE INFORMATION: Exam: XR Left Forearm Exam date and time: 07/28/2022 4:27 AM Age: 52 years old Clinical indication: Injury or trauma; Fall; Blunt trauma (contusions or hematomas); Arm, lower; Injury details: /; Patient HX: Left side paralysis. PT fell out of wheelchair; Additional info: Pain post fall TECHNIQUE: Imaging protocol: Radiologic exam of the Left forearm. Views: 2 views. COMPARISON: No relevant prior studies available. FINDINGS: Bones/joints: No fracture. Soft tissues: Mild soft tissue edema. XR/XR forearm LT 2V [id number] IMPRESSION: No fracture.
--- NOTE | 2022-07-28 03:13 | CTR_ITS ---
PROCEDURE INFORMATION: Exam: CT Cervical Spine Without Contrast Exam date and time: 07/28/2022 3:49 AM Age: 52 years old Clinical indication: Injury or trauma; Fall; Blunt trauma; Injury details: Left side paralysis. PT fell out of wheelchair; Additional info: Fall head inj TECHNIQUE: Imaging protocol: Computed tomography of the cervical spine without contrast. Radiation optimization: All CT scans at this facility use at least one of these dose optimization techniques: automated exposure control; mA and/or kV adjustment per patient size (includes targeted exams where dose is matched to clinical indication); or iterative reconstruction. COMPARISON: CT angio headneck* [id number] 03/15/2022 7:32 PM RADIATION DOSE METRICS: Total DLP (mGy-cm): 477.03 FINDINGS: Bones/joints: No acute fracture. There is normal alignment. There is mild reversal of the normal cervical lordosis that may reflect muscle spasm or may be positional. Lungs: Lung apices are normal. Soft tissues: There are no paraspinal fluid collections or hematoma. CT/CT cervical spin wo con* [id number] IMPRESSION: 1. No evidence of acute fracture or acute traumatic subluxation. 2. Reversal of the normal cervical lordosis that may reflect muscle spasm or may be positional.
--- NOTE | 2022-07-28 03:13 | CTR_ITS ---
PROCEDURE INFORMATION: Exam: CT Maxillofacial Without Contrast Exam date and time: 07/28/2022 3:44 AM Age: 52 years old Clinical indication: Injury or trauma; Fall; Blunt trauma (contusions or hematomas); Other: Unknown - fell face first from ; Injury details: Left side paralysis. PT fell out of wheelchair face first per PT; Additional info: Fall face inj TECHNIQUE: Imaging protocol: Computed tomography of the face without contrast. Radiation optimization: All CT scans at this facility use at least one of these dose optimization techniques: automated exposure control; mA and/or kV adjustment per patient size (includes targeted exams where dose is matched to clinical indication); or iterative reconstruction. COMPARISON: CT head wo con* [id number] 07/28/2022 3:40 AM RADIATION DOSE METRICS: Total DLP (mGy-cm): 493.08 FINDINGS: Orbital cavities: Orbits are normal. Globes demonstrate postoperative changes of the ocular lenses. Bones/joints: No acute fracture of the facial bones is noted. Paranasal sinuses: Mild nodular mucosal thickening is present in the maxillary sinuses. Soft tissues: There is an ornamental metallic ring-the right nasal ala. Dental: The 1st right maxillary molar shows a large periapical lucency consistent with periodontal disease, possible tooth abscess. Multiple additional smaller periapical lucencies are present. CT/CT facial bones wo con* [id number] IMPRESSION: 1. No acute fracture of the facial bones. 2. Mild nodular mucosal thickening of the maxillary sinuses. 3. Periodontal disease involving multiple teeth and molars.
[2022-07-28 03:34] VITALS: PULSE 97; RESP 16; O2SAT 96
[2022-07-28 05:30] VITALS: PULSE 101; RESP 18; O2SAT 95
[2022-07-28 06:42] VITALS: BP 145/94; PULSE 100; RESP 18; O2SAT 95
--- NOTE | 2022-07-28 08:00 | PC.NURSE ---
PT HR IS 104, RR AT 18, AND SPO2 97%.
[2022-07-28 08:07] VITALS: BP 197/101
[2022-07-28] MEDS: losartan 50 mg Tablet PO (08:07)
--- NOTE | 2022-07-28 08:08 | PC.NURSE ---
INFORMED DR. COYLE OF BP OF 197/101 VO WITH READBACK TO ADM 50MG OF LOSARTON PO AND CONTINUE WITH DC.
--- NOTE | 2022-07-28 08:09 | PC.NURSE ---
UPON DC PT IS IN NAD.
--- NOTE | 2022-07-28 15:14 | ED_ITS ---
HPI - Fall General: Chief Complaint: Fall Stated Complaint: fall/head injury Time Seen by Provider: 07/28/22 03:05 Source: patient and EMS History of Present Illness: 52 year old female with the history of early onset dementia following hemorrhagic stroke. She presents after a fall in shelter in which she fell face forward out of a wheelchair landing on her face. She complaints of left arm pain and facial pain. Her mental status is at baseline per report. She is not a reliable historian. MD complaint: fall Onset (ago): minute(s) Fall from: wheelchair Fall witnessed: yes, by living facility staff Place fall occurred: shelter/SNF Loss of consciousness: None Prolonged down time: no Symptoms prior to fall: none Context: other (fell asleep by report) Location of injury: head and face Location of injury - extremities: Left: arm Review of Systems General: Reports: ROS unobtainable due to medical condition (what is available comes from report. ) Const: Denies: fever(s) Resp: Denies: dyspnea GI: Denies: vomiting PFSH ED PFSH: Medical History CVA (cerebral vascular accident) De Quervain's disease (radial styloid tenosynovitis) Depression Diabetes Diabetic retinopathy GERD (gastroesophageal reflux disease) Hx of hepatitis C Completed tx 2006 Hyperlipidemia Hypertension Did not tolerate hydrochlorothiazide or KOKO inhibitor due to dizziness Right wrist pain Tendonitis Yeast dermatitis Surgical History H/O: Family History Sister Cancer Mother Chronic kidney disease (CKD) Diabetes Hypertension Father Hypertension Family/Other Stroke aunt Social History Smoking and tobacco status: former smoker Alcohol intake: current Alcohol intake frequency: few times a month Female Reproductive History: Date of last menstrual period: 04/09/20 Spontaneous abortions: No Physical Exam Const: COMMON NORMALS: no acute distress GENERAL APPEARANCE: cooperative and appears older than stated age NUTRITIONAL APPEARANCE: obese ORIENTATION/CONSCIOUSNESS: Yes awake, Yes oriented to person and Yes oriented to place; not oriented to time HENMT: COMMON NORMALS: normocephalic, external ears normal and Normal external nose present HEAD & SCALP: normocephalic FACE & SINUS: no ecchymosis NOSE: Normal external nose present and Abnormal mucous membranes and turbinates present (dried blood present. no septal hematoma) EXTERNAL EAR: Yes external ears normal MOUTH: tongue normal Eye: COMMON NORMALS: Equal, round and reactive pupils present and EOMs intact bilaterally PUPIL: Yes Equal, round and reactive pupils present Neck/C-Spine: GENERAL: Yes normal visual inspection and Yes trachea midline CERVICAL SPINE: No Cervical spine tenderness Chest: CHEST: Yes Symmetrical chest wall rise Resp: COMMON NORMALS: normal respiratory effort, No use of accessory muscles and clear to auscultation bilaterally AUSCULTATION: clear to auscultation bilaterally Cardio: COMMON NORMALS: regular rate and regular rhythm RATE: regular rate RHYTHM: regular rhythm GI: INSPECTION: Yes normal to inspection PALPATION: No Tenderness to palpation present (GI) Extremity: NARRATIVE EXTREMITY EXAM: No deformity to the left upper extremity. There is diffuse nonspecific tendernes s. No ecchymosis. Neuro: MISHA COMA SCALE: document GCS findings Misha coma scale eye opening: Spontaneous Misha coma scale verbal response: Confused Misha coma scale motor response: Obey commands [place] coma scale total score: 14 SENSORIUM/ORIENTATION: Yes oriented to person, Yes oriented to place and No oriented to time Course Vital Signs: Vital signs: Vital Signs Pulse Rate 100 07/28/22 06:42 Respiratory Rate 18 07/28/22 06:42 Blood Pressure 197/101 07/28/22 08:07 Pulse Oximetry 95 07/28/22 06:42 Oxygen Delivery Me thod 07/28/22 01:36 MDM - Fall Medical Decision Making CT scans are negative for acute changes. As above, her mental status is at baseline. She is cleared to return to the shelter. Mention is made of increased ventricle size which is non acute, and can be worked up as an outpatient if needed. Lab Data Radiology Impressions Cervical Spine CT 07/28/22 03:13 IMPRESSION: 1. No evidence of acute fracture or acute traumatic subluxation. 2. Reversal of the normal cervical lordosis that may reflect muscle spasm or may be positional. Face CT 07/28/22 03:13 IMPRESSION: 1. No acute fracture of the facial bones. 2. Mild nodular mucosal thickening of the maxillary sinuses. 3. Periodontal disease involving multiple teeth and molars. Forearm X-Ray 07/28/22 03:13 IMPRESSION: No fracture. Head CT 07/28/22 03:13 IMPRESSION: 1. No acute intracranial findings. 2. Hypodensities in the right gangliocapsular region and centrum semiovale that correspond to chronic evolving intracranial hemorrhages. These are areas of encephalomalacia/gliosis. 3. Moderate volume loss out of proportion to the patient's age. 4. The ventricles are significantly more dilated than on prior examinations and out of the proportion to the degree of sulcal prominence. Consider evaluation for normal pressure hydrocephalus, if not already accomplished. Humerus X-Ray 07/28/22 03:13 IMPRESSION: No acute findings. Discharge Plan Discharge Patient Disposition: Home Clinical Impression: Contusion of arm, left, Contusion of face Condition: Stable Prescriptions: No Action nystatin 100,000 unit/gram powder 1 applic topical DAILY Qty: 60 5RF metoprolol succinate 25 mg tablet extended release 24 hr 25 mg PO DAILY 30 Days Qty: 30 2RF Levemir FlexTouch U-100 Insuln 100 unit/mL (3 mL) insulin pen 25 unit SUBCUT DAILY 30 Days Qty: 15 2RF sertraline 100 mg tablet 100 mg PO DAILY 90 Days Qty: 90 0RF omeprazole 40 mg capsule,delayed release(DR/EC) 40 mg PO DAILY 90 Days Qty: 90 1RF diphenhydramine HCl [Benadryl] 25 mg capsule 25 mg PO TID PRN Fiasp FlexTouch U-100 Insulin 100 unit/mL (3 mL) insulin pen See Rx Instructions .ROUTE .COMPLEX Qty: 15 3RF Dose Instruction: 20 UNIT (0.2ML) SUB-Q 3 TIMES A DAY 30 DAYS WITH MEALS QUANITY SUFFICIENT Rx Instructions: 20 UNIT (0.2ML) SUB-Q 3 TIMES A DAY 30 DAYS WITH MEALS QUANITY SUFFICIENT miscellaneous medical supply Misc See Rx Instructions miscellaneous .COMPLEX Qty: 1 0RF Rx Instructions: Compression sleeve for left arm due to lymphedema. Needs fitted at [facility] [place], [place] magnesium oxide [MagOx] 400 mg (241.3 mg magnesium) tablet 400 mg PO BID 90 Days Qty: 180 0RF (DME) Blood Glucose Test Strip See Rx Instructions .ROUTE .MEDSUPPLY Qty: 100 11RF Rx Instructions: strips for new machine, 3 strips daily (DME) lancets Misc See Rx Instructions .ROUTE .MEDSUPPLY Qty: 100 11RF Rx Instructions: For use with glucose meter, brand/type per insurance (DME) blood-glucose meter [Blood Glucose Monitoring] Kit See Rx Instructions .ROUTE .MEDSUPPLY Qty: 1 0RF Rx Instructions: Brand/type per insurance coverage alcohol swabs Pads, Medicated 1 pad topical TID PRN (Reason: as needed to check blood sugar) 30 Days Qty: 100 11RF Discharge Orders: Discharge ED (Routine); Ordered 07/28/22 Ordered By: Jose Stovall Referrals: Rosi Angel MD [Primary Care Provider] - 1-3 days Patient Instructions: Contusion in Adults (ED), Facial Contusion (ED) Activity Restrictions/Additional Instructions: Return for worsening mental status, weakness, language problems, vision problems, any other concerning symptoms. Coding Level of Care Code ED [employer] Supervisor for Nakul Torres
== END 2022-07-28 08:22 | disposition home or self-care (01) ==
PROVIDERS: Emergency Provider Emergency Medicine; PCP Family Medicine
DX: S40.022A Contusion of left upper arm, initial encounter (principal); S00.83XA Contusion of other part of head, initial encounter; W05.0XXA Fall from non-moving wheelchair, initial encounter; Y92.129 Unspecified place in nursing home as the place of occurrence of the external cause; F03.90 Unspecified dementia, unspecified severity, without behavioral disturbance, psychotic disturbance, mood disturbance, and anxiety; Z86.73 Personal history of transient ischemic attack (TIA), and cerebral infarction without residual deficits; E11.9 Type 2 diabetes mellitus without complications; Z86.19 Personal history of other infectious and parasitic diseases; E78.5 Hyperlipidemia, unspecified; I10 Essential (primary) hypertension; Z87.891 Personal history of nicotine dependence; Z79.4 Long term (current) use of insulin
CPT/HCPCS: 70450; 70486; 72125; 73060; 73090; 99284